=== PATIENT | male | born 1950 | race Caucasian/White ===

== ENCOUNTER → 2021-10-21 17:57 | Outpatient (CLI) | payer MEDICARE, OTHER, SELFPAY ==
--- NOTE | 2021-10-21 17:59 | DI.RAD.S_ITS ---
PROCEDURE: XR KNEE LT 3V INDICATIONS: Left knee swelling TECHNIQUE: 3 views of the knee were acquired. COMPARISON: None. FINDINGS: Bones: Zlaj-[id number]-[id number] arthrosis, particularly of the medial compartment. Soft tissues: Large joint effusion. IMPRESSION: [id number]-[id number] arthrosis. Large joint effusion. Consider MRI to further evaluate for internal derangement if necessary. Dictated by: Randy Ding M.D. on 10/22/2021 at 10:07 Approved by: Randy Ding M.D. on 10/22/2021 at 10:08
== END ==
PROVIDERS: Referring Provider Nurse Practitioner Family; Visit Provider Nurse Practitioner Family
DX: M25.462 Effusion, left knee (principal); M17.12 Unilateral primary osteoarthritis, left knee
CPT/HCPCS: 73562